=== PATIENT | female | born 1985 | race Caucasian/White ===

== ENCOUNTER 2017-06-15 14:19 | Outpatient (CLI) | payer BC, OTHER ==
--- NOTE | 2017-06-16 04:52 | MRI Report ---
EXAM: MRI LUMBAR SPINE WITHOUT CONTRAST EXAM DATE: 06/15/2017 03:43 PM. CLINICAL HISTORY: Low back pain. COMPARISON: CT of the abdomen and pelvis from 06/06/2014. TECHNIQUE: Multiplanar, multisequence T1-weighted and fluid-sensitive sequences of the lumbar spine f rom T12 to S1 without contrast. Other: None. FINDINGS: Spinal Cord: The conus terminates at L1. The conus medullaris and cauda equina are unremarkable. Alignment: There is no spondylolisthesis. Bone Marrow: Five huk-nef-jcnzmck lumbar vertebral bodies are confirmed on the CT. No gross fractures or bone lesions. No bone marrow edema. Disk Levels/Facets: T12-L1: Unremarkable on sagittal images. L1-L2: Unremarkable. L2-L3: Unremarkable. L3-L4: Unremarkable. L4-L5: A mild disk bulge results in mild bilateral foraminal narrowing with mild spinal canal stenosi s. The disk bulge appears to abut but does not impinge the descending right L5 nerve root. L5-S1: Unremarkable. Musculature: Normal. No edema or fatty atrophy. Other: The partially visualized retroperitoneum is unremarkable. IMPRESSION: 1. Normal conus medullaris and cauda equina. 2. Disk bulge at L4-L5 abuts but does not impinge the descending right L5 nerve root. Comment: The following findings are so common in adults without low back pain that while we report th eir presence, they must be interpreted with caution and in the context of the clinical situation. (Re candy Lo et al, Spine 2001) Prevalence of findings in patients without low back pain: Disk degeneration (any evidence): 92% Disk desiccation/T2 signal loss: 83% Disk height loss: 56% Disk bulge: 64% Disk protrusion: 32% Annular tear/high intensity zone: 38% [facility] Referring Provider Line: [phone] SITE ID: [id number]
== END 2017-06-15 14:20 | disposition home or self-care (01) ==
LOC: DI 14:19
PROVIDERS: ATTEND Nurse Practitioner Family
DX: M51.86 Other intervertebral disc disorders, lumbar region (principal)
CPT/HCPCS: 72148

== ENCOUNTER 2017-12-04 12:56 | Outpatient (CLI) | payer BC ==
--- NOTE | 2017-12-04 22:24 | MRI Report ---
Reason: RT KNEE SWELLING, PAIN AND INSTABILITY Procedure Date: 12/04/2017 Accession Number: [id number] / [id number] Procedure: MRI - Knee RT W/O CPT Code: FULL RESULT: EXAM: RIGHT KNEE MRI WITHOUT CONTRAST EXAM DATE: 12/04/2017 01:57 PM. CLINICAL HISTORY: Trauma on treadmill. COMPARISON: None. TECHNIQUE: Multiplanar, multisequence T1-weighted and fluid-sensitive sequences of the knee without contrast. Other: None. FINDINGS: Bones: There is a trabecular fracture in the medial tibial plateau with surrounding marrow edema.. Articular Cartilage: Unremarkable. Medial Meniscus: The medial meniscus is intact. Lateral Meniscus: The body of the lateral meniscus demonstrates a longitudinal tear. Cruciate Ligaments: The anterior and posterior cruciate ligaments are intact. Collateral Ligaments: The medial collateral and lateral collateral ligamentous structures are intact. Tendons: The quadriceps, patellar, semimembranosus, and popliteus tendons are unremarkable. Musculature: Mild edema of the popliteus muscle is likely related to the bony abnormality in the proximal tibia. Other: No effusion. No popliteal cyst. No loose bodies. The medial and lateral retinacula are intact. Prepatellar subcutaneous edema is present.. IMPRESSION: 1. Trabecular fracture of the medial tibial plateau. 2. Longitudinal tear of the body of the medial and lateral meniscus. [facility] MUSCULOSKELETAL RADIOLOGY SECTION
== END 2017-12-04 12:57 | disposition home or self-care (01) ==
LOC: DI 12:56
PROVIDERS: ATTEND Nurse Practitioner Family
DX: S82.141A Displaced bicondylar fracture of right tibia, initial encounter for closed fracture (principal); S83.241A Other tear of medial meniscus, current injury, right knee, initial encounter; S83.281A Other tear of lateral meniscus, current injury, right knee, initial encounter

== ENCOUNTER 2021-05-05 08:00 | Outpatient (CLI) | payer BC | END 2021-05-05 23:59 | LOC: LAB 08:00 | PROVIDERS: ATTEND Physician Assistant Medical | DX: U07.1 COVID-19 (principal) | CPT/HCPCS: 87070 ==

== ENCOUNTER 2021-08-27 07:42 | Emergency (ER) | payer BC ==
[2021-08-27] MEDS ORDERED: LIDOCAINE VISCOUS 2% 15 ML UDC MM STA (08:05)
[2021-08-27] MEDS ORDERED: MAG HYDROX/AL HYDROX/SIMETH 30 ML UDC PO STA (08:05)
--- NOTE | 2021-08-27 08:07 | ED Physician Documentation ---
PD HPI ABD PAIN - Stated complaint Stated Complaint: ABD PAIN - Chief complaint Chief Complaint: Abd Pain - History obtained from History obtained from: Patient - Additional information Additional information: 36-year-old woman with history of remote cholecystectomy and she also notes that on routine blood work she has been having some elevated liver enzymes without specific diagnosis. She presents with nausea after eating and worsening postprandial upper abdominal pain like a "squeezing." Its been going on for about 2 weeks but the pain yesterday after eating was particularly bad. States she is never had anything like this before but we noted that she had a similar visit with diagnosis of gastritis in 2014. Negative diagnostics at that time. Including CT. Review of Systems Ten Systems: 10 systems reviewed and negative Constitutional: denies: Fever, Chills Cardiac: reports: Reviewed and negative Respiratory: reports: Reviewed and negative PD PAST MEDICAL HISTORY - Past Surgical History General: Cholecystectomy - Present Medications Home Medications: Ambulatory Orders Medication Instructions Recorded Confirmed HYDROcod/ACETAM 5/325 [[place] 5/325] 1 - 2 tab PO Q6H PRN #15 tablet 08/27/21 Norgestimate-Ethinyl Estradiol 1 each PO DAILY 08/27/21 08/27/21 [Per-Om-Jsgiklfe Tablet] - Allergies Allergies/Adverse Reactions: Allergies Allergy/AdvReac Type Severity Reaction Status Date / Time No Known Drug Allergies Allergy Verified 08/27/21 07:52 - Social History Does the pt smoke?: No Smoking Status: Never smoker Does the pt drink ETOH?: No Does the pt have substance abuse?: No PD ED PE NORMAL - Vitals Vital signs reviewed: Yes - General General: Alert and oriented X 3, No acute distress - Cardiac Cardiac: RRR, No murmur - Respiratory Respiratory: No respiratory distress, Clear bilaterally - Abdomen Abdomen: Normal bowel sounds, Soft, Non tender - Derm Derm: No rash - Neuro Neuro: Alert and oriented X 3, Normal speech Results - Vitals Vitals: Vital Signs - 24 hr 08/27/21 08/27/21 08/27/21 07:48 08:21 09:36 Temperature 37.1 C Heart Rate 92 83 81 Respiratory 16 16 16 Rate Blood Pressure 138/88 H 134/70 H 122/68 O2 Saturation 99 99 99 08/27/21 10:00 Temperature Heart Rate 666 H Respiratory 16 Rate Blood Pressure 125/77 O2 Saturation 99 Oxygen O2 Source Room air - Labs Labs: Laboratory Tests 08/27/21 08/27/21 08/27/21 07:55 08:13 08:13 WBC 7.8 RBC 4.92 Hgb 14.8 Hct 44.7 MCV 90.9 MCH 30.1 MCHC 33.1 RDW 12.1 Plt Count 342 MPV 10.5 Neut # (Auto) 5.2 Lymph # (Auto) 1.8 [place] # (Auto) 0.7 Eos # (Auto) 0.1 Baso # (Auto) 0.0 Absolute Nucleated RBC 0.00 Nucleated RBC % 0.0 Sodium 137 Potassium 3.9 Chloride 103 Carbon Dioxide 21 Anion Gap 13.0 BUN 13 Creatinine 0.8 Estimated GFR (MDRD) 81 L Glucose 104 H Calcium 9.4 Total Bilirubin 0.8 AST 29 ALT 27 Alkaline Phosphatase 81 Total Protein 8.2 Albumin 4.1 Globulin 4.1 Albumin/Globulin Ratio 1.0 Lipase 30 Urine Color YELLOW Urine Clarity CLEAR Urine pH 6.0 Ur Specific [place] <=1.005 Urine Protein NEGATIVE Urine Glucose (UA) NEGATIVE Urine Ketones NEGATIVE Urine Occult Blood NEGATIVE Urine Nitrite NEGATIVE Urine Bilirubin NEGATIVE Urine Urobilinogen 0.2 (NORMAL) Ur Leukocyte Esterase NEGATIVE Ur Microscopic Review NOT INDICATED Urine Culture Comments NOT INDICATED Urine HCG, Qual NEGATIVE PD MEDICAL DECISION MAKING - ED course ED course: 36-year-old woman presents with upper abdominal pain, postprandial. Seems most consistent with gastritis but really did not get any relief from GI cocktail here. As such a CT was done, interpreted contemporaneously by me which was normal. She was feeling better after Toradol, and given the likely diagnosis of gastritis she has a PPI at home which she will start taking. Departure - Departure Disposition: Home, Self Care Clinical Impression: Gastritis Qualifiers: Gastritis type: unspecified gastritis Chronicity: acute Gastritis bleeding: without bleeding Qualified Code(s): K29.00 - Acute gastritis without bleeding Condition: Good Record reviewed to determine appropriate education?: Yes Instructions: ED PUD Vs Gastritis Prescriptions: HYDROcod/ACETAM 5/325 [[place] 5/325] 1 - 2 tab PO Q6H PRN #15 tablet PRN Reason: Pain Comments: I sent your prescriptions to [facility] in [place]. As discussed, your labs and CT are unremarkable suggesting a diagnosis of gastritis or less likely an ulcer. Take your Prilosec that you already have at home. If not better in a few days return for reevaluation, if symptoms are persistent consider following up with your primary care physician for referral for upper endoscopy. I am prescribing a short course of narcotic pain medication for you. These are potentially dangerous and addictive medications that should be used carefully. These medications may constipate you. Take an gsvx-myx-njcsvst stool softener (docusate) twice daily with plenty of water while taking these medications. If you go 24 hours without a bowel movement, take snhg-til-uksamgn miralax, per package instructions. Do not drink or drive while taking these medications. If you received narcotic or sedating medications while in the emergency department, do not drive for 24 hours. Store this medication in a safe, secure place and out of reach of children. It is a violation of federal law to give or sell this medication to another person or to use in a manner other than prescribed. The ED will not refill narcotic prescriptions, including prescriptions lost or stolen. To dispose of unwanted medications: 1. [facility] [address] in [place] has a medication drop box. They accept prescription medications (in pill form) Sunday through Sunday 9:00 a.m. to 5:00 p.m. 2. The [facility] [employer] accepts prescription medications (in pill form only) for disposal year round. Call for more information. 3. Contact the [facility] for the next [facility] sponsored prescription drug collection event. , [phone], or [phone]; Note that many narcotic pain relievers also contain Tylenol/acetaminophen. Please ensure that your total dose of acetaminophen from all sources does not exceed 3 g (3000 mg) per day. Discharge Date/Time: 08/27/21 10:08
[2021-08-27 08:22] LABS: BASOPHILS % (AUTO) 0.3 %; EOSINOPHILS # (AUTO) 0.1 10^3/uL (0.0-0.7); EOSINOPHILS % (AUTO) 1.1 %; HCT - HEMATOCRIT 44.7 % (37.0-47.0); HGB - HEMOGLOBIN 14.8 g/dL (12.0-16.0); LYMPHOCYTES # (AUTO) 1.8 10^3/uL (1.5-3.5); MEAN CORPUSCULAR HEMOGLOBIN 30.1 pg (27.0-31.0); MEAN CORPUSCULAR HGB CONC 33.1 g/dL (32.0-36.0); MEAN CORPUSCULAR VOLUME 90.9 fL (81.0-99.0); MEAN PLATELET VOLUME 10.5 fL (7.9-10.8); MONOCYTES # (AUTO) 0.7 10^3/uL (0.0-1.0); MONOCYTES % (AUTO) 9.1 %; NEUTROPHILS # (AUTO) 5.2 10^3/uL (1.5-6.6); NEUTROPHILS % (AUTO) 66.4 %; PLT - PLATELET COUNT 342 10^3/uL (130-450); RED BLOOD COUNT 4.92 10^6/uL (4.20-5.40); RED CELL DISTRIBUTION WIDTH 12.1 % (12.0-15.0); WHITE BLOOD COUNT 7.8 x10^3/uL (4.8-10.8)
[2021-08-27 08:25] LABS: BILIRUBIN,URINE NEGATIVE (NEGATIVE); GLUCOSE, URINE (UA) NEGATIVE (NEGATIVE); KETONES,URINE (UA) NEGATIVE (NEGATIVE); LEUKOCYTE ESTERASE, URINE NEGATIVE (NEGATIVE); NITRITE,URINE NEGATIVE (NEGATIVE); OCCULT BLOOD,URINE NEGATIVE (NEGATIVE); PROTEIN,URINE NEGATIVE (NEGATIVE); UROBILINOGEN,URINE 0.2 (NORMAL) E.U./dL (NORMAL)
[2021-08-27 08:27] LABS: CLARITY,URINE CLEAR (CLEAR); HCG UR QUAL NEGATIVE
[2021-08-27 08:33] LABS: ALBUMIN 4.1 g/dL (3.2-5.5); BILIRUBIN,TOTAL 0.8 mg/dL (0.2-1.0); CALCIUM 9.4 mg/dL (8.5-10.3); CREATININE 0.8 mg/dL (0.4-1.0); POTASSIUM 3.9 mmol/L (3.5-5.0); TOTAL PROTEIN 8.2 g/dL (6.7-8.2)
[2021-08-27] MEDS ORDERED: KETOROLAC 15 MG/ML VIAL IVP STA (08:42)
[2021-08-27] MEDS ORDERED: ONDANSETRON 4 MG/2 ML VIAL IVP STA (08:42)
[2021-08-27] MEDS ORDERED: IOVERSOL 320 100 ML VIAL IVP ONE ×2 (08:57→09:12)
--- NOTE | 2021-08-27 09:35 | CT Report ---
PROCEDURE: CT abdomen pelvis with contrast INDICATIONS: Pain CONTRAST: IV CONTRAST: Optiray 320 ml: 100 PO CONTRAST: *NO PO CONTRAST TECHNIQUE: After the administration of contrast, 5 mm thick sections acquired from the diaphragms to the sym physis. 5 mm thick coronal and sagittal reformats were acquired. For radiation dose reduction, the following was used: automated exposure control, adjustment of mA and/or kV according to patient size . COMPARISON: None. FINDINGS: Image quality: Excellent. ABDOMEN: Lung bases: Lung bases are clear. Heart size is normal. Solid organs: Liver and spleen are normal in size and enhancement. Gallbladder surgically absent. Biliary system is non dilated. Pancreas enhances normally. No adrenal nodules. Kidneys demonstrate normal size and enhancement, without hydronephrosis. Peritoneum and bowel: Bowel loops demonstrate normal wall thickness and caliber. No free fluid or a ir. Nodes and vessels: No retroperitoneal or mesenteric adenopathy by size criteria. Aorta and inferior vena cava are normal in size. Miscellaneous: Periumbilical hernia ventral contains fat without bowel involvement, small. PELVIS: Genitourinary: Bladder wall thickness is normal. Miscellaneous: No inguinal hernias or adenopathy. Bones: No suspicious bony lesions. No vertebral body compression fractures. IMPRESSION: 1. No acute CT findings in the abdomen and pelvis. Reviewed by: Hiram Grossman MD on 08/27/2021 8:34 AM DIS[facility] Approved by: Hiram Grossman MD on 08/27/2021 8:34 AM DISHA Station ID: [id number]
[2021-08-27 10:06] VITALS: BP 125/77
== END 2021-08-27 10:08 | disposition home or self-care (01) ==
LOC: ED 07:42
DX: K29.00 Acute gastritis without bleeding (principal)
CPT/HCPCS: 36415; 74177; 80053; 81003; 81025; 83690; 85025; 96374; 96375; 99282; 99284; A9270; Q9967; 81001; 87086

== ENCOUNTER 2022-09-15 12:12 | Emergency (ER) | payer BC ==
[2022-09-15 12:21] VITALS: BP 130/90
[2022-09-15 12:52] LABS: BASOPHILS % (AUTO) 0.4 %; EOSINOPHILS # (AUTO) 0.1 10^3/uL (0.0-0.7); EOSINOPHILS % (AUTO) 0.8 %; HCT - HEMATOCRIT 43.5 % (37.0-47.0); HGB - HEMOGLOBIN 14.1 g/dL (12.0-16.0); LYMPHOCYTES # (AUTO) 2.3 10^3/uL (1.5-3.5); LYMPHOCYTES % (AUTO) 21.2 %; MEAN CORPUSCULAR HEMOGLOBIN 30.5 pg (27.0-31.0); MEAN CORPUSCULAR HGB CONC 32.4 g/dL (32.0-36.0); MONOCYTES # (AUTO) 0.7 10^3/uL (0.0-1.0); MONOCYTES % (AUTO) 6.9 %; NEUTROPHILS # (AUTO) 7.5 10^3/uL (1.5-6.6); NEUTROPHILS % (AUTO) 70.3 %; PLT - PLATELET COUNT 388 10^3/uL (130-450); RED BLOOD COUNT 4.63 10^6/uL (4.20-5.40); RED CELL DISTRIBUTION WIDTH 12.7 % (12.0-15.0); WHITE BLOOD COUNT 10.6 x10^3/uL (4.8-10.8)
--- NOTE | 2022-09-15 12:52 | ED Physician Documentation ---
PD HPI CHEST PAIN - Stated complaint Stated Complaint: CHEST PX - Chief complaint Chief Complaint: Cardiac - History obtained from History obtained from: Patient - Additional information Additional information: 37-year-old woman has been under a lot of stress. Her by suicide last February and she had a stressful move last month. For the last month she has had intermittent sharp upper chest pain occasionally radiating to the back. It was initially related to eating but now has been more constant for the last week. She started Prilosec a few days ago with no help yet. She is occa sionally short of breath with a dry cough with it. 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 : None HEENT: None Psych: Anxiety Musculoskeletal: None Derm: None - Past Surgical History Past Surgical History: Yes General: Cholecystectomy - Present Medications Home Medications: Ambulatory Orders Medication Instructions Recorded Confirmed HYDROcod/ACETAM 5/325 [[place] 5/325] 1 - 2 tab PO Q6H PRN #15 tablet 08/27/21 Norgestimate-Ethinyl Estradiol 1 each PO DAILY 08/27/21 08/27/21 [Njd-Ak-Kpvmhzkj Tablet] - Allergies Allergies/Adverse Reactions: Allergies Allergy/AdvReac Type Severity Reaction Status Date / Time No Known Drug Allergies Allergy Verified 09/15/22 12:18 - Social History Does the pt smoke?: No Smoking Status: Never smoker Does the pt drink ETOH?: No Does the pt have substance abuse?: No - Immunizations Immunizations are current?: Yes PD ED PE NORMAL - Vitals Vital signs reviewed: Yes - General General: Alert and oriented X 3, No acute distress - Neck Neck: Supple, no meningeal sign, No bony TTP - Cardiac Cardiac: RRR, No murmur - Respiratory Respiratory: No respiratory distress, Clear bilaterally - Abdomen Abdomen: Non tender - Neuro Neuro: Alert and oriented X 3, Normal speech Results - Vitals Vitals: Vital Signs - 24 hr 09/15/22 12:15 Temperature 36.8 C Heart Rate 80 Respiratory 20 Rate Blood Pressure 130/90 H O2 Saturation 100 Oxygen O2 Source Room air - EKG (time done) 1240 EKG releavant findings:: EKG personally interpreted by author of this note. Relevant findings are: Rate: Rate (enter#) (87) Rhythm: NSR [place]: Normal Intervals: Normal ME QRS: Normal Ischemia: Non specific changes. No: ST elevation c/w ischemia, ST depression - Labs Labs: Laboratory Tests 09/15/22 09/15/22 09/15/22 12:46 12:46 12:46 WBC 10.6 RBC 4.63 Hgb 14.1 Hct 43.5 MCV 94.0 MCH 30.5 MCHC 32.4 RDW 12.7 Plt Count 388 MPV 10.0 Neut # (Auto) 7.5 H Lymph # (Auto) 2.3 [place] # (Auto) 0.7 Eos # (Auto) 0.1 Baso # (Auto) 0.0 Absolute Nucleated RBC 0.00 Nucleated RBC % 0.0 Sodium 140 Potassium 4.0 Chloride 106 Carbon Dioxide 24 Anion Gap 10.0 BUN 11 Creatinine 0.8 Estimated GFR (MDRD) 80 L Glucose 95 Calcium 9.0 Total Bilirubin 0.6 AST 25 ALT 32 Alkaline Phosphatase 118 Troponin I High Sens < 2.3 L Total Protein 8.0 Albumin 4.1 Globulin 3.9 Albumin/Globulin Ratio 1.1 Lipase 27 - Rads (name of study) Single view chest x-ray is unremarkable Relevant Findings:: Final report received, EMP independent interpretation of test PD Medical Decision Making - ED course ED course: 37-year-old woman with 3 weeks of worsening chest pain associated with stress and some association with eating. She does have a known history of gastritis. She started PPI few days ago but not clear if it has been enough time for her to actually be affected with. She was worried about more serious diagnoses and there is nothing in the history or physical to suggest PE, dissection, or ACS. Work-up was otherwise negative with normal CBC, CMP, and negative troponin. Departure - Departure Disposition: 01 Home, Self Care Clinical Impression: Atypical chest pain Condition: Good Record reviewed to determine appropriate education?: Yes Instructions: ED Chest Pain NonCardiac Comments: EKG labs and chest x-ray all looking fine. We have ruled out anything serious or life-threatening. I would continue the Prilosec and talk with your doctor about further evaluation and treatment. Return for new or worsening symptoms. Discharge Date/Time: 09/15/22 14:10
[2022-09-15 13:04] LABS: ALBUMIN 4.1 g/dL (3.2-5.5); ALBUMIN/GLOBULIN RATIO 1.1 (1.0-2.2); BILIRUBIN,TOTAL 0.6 mg/dL (0.2-1.0); CREATININE 0.8 mg/dL (0.4-1.0)
--- NOTE | 2022-09-15 13:16 | XRAY Report ---
PROCEDURE: Chest 1 View X-Ray INDICATIONS: Chest Pain TECHNIQUE: One view of the chest was acquired. COMPARISON: None. FINDINGS: Surgical changes and devices: None. Lungs and pleura: No pleural effusions or pneumothorax. Lungs are clear. Mediastinum: Mediastinal contours appear normal. Heart size is normal. Bones and chest wall: No suspicious bony lesions. Overlying soft tissues appear unremarkable. IMPRESSION: No acute cardiopulmonary process. Reviewed by: Jean Marie Dhillon on 09/15/2022 1:15 PM PDT Approved by: Jean Marie Dhillon on 09/15/2022 1:15 PM PDT Station ID: [id number]
== END 2022-09-15 14:10 | disposition home or self-care (01) ==
LOC: ED 12:12
DX: R07.89 Other chest pain (principal)
CPT/HCPCS: 36415; 80053; 83690; 84484; 85025; 93005; 99283; 99284

== ENCOUNTER 2023-12-15 07:49 | Outpatient (CLI) | payer OTHER | END 2023-12-15 07:50 | disposition EMS.NT | LOC: EMS 07:49 | DX: M25.522 Pain in left elbow (principal); V49.40XA Driver injured in collision with unspecified motor vehicles in traffic accident, initial encounter; Y92.413 State road as the place of occurrence of the external cause ==

== ENCOUNTER 2023-12-15 10:38 | Emergency (ER) | payer OTHER ==
[2023-12-15 11:15] VITALS: BP 151/66; O2SAT 99
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
[2023-12-15] MEDS: KETOROLAC 30 MG/ML VIAL IM STA (12:00)
[2023-12-15] MEDS: CYCLOBENZAPRINE 10 MG TABLET PO STA (12:01)
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
== END 2023-12-15 13:57 | disposition home or self-care (01) ==
LOC: ED 10:38
DX: S63.502A Unspecified sprain of left wrist, initial encounter (principal); M54.2 Cervicalgia; V43.52XA Car driver injured in collision with other type car in traffic accident, initial encounter; Y92.488 Other paved roadways as the place of occurrence of the external cause
CPT/HCPCS: 72125; 73080; 73110; 96372; 99284; A9270